=== PATIENT | male | born 1970 | race Caucasian/White ===

== ENCOUNTER 2022-02-24 15:58 | Emergency (ER) | payer MEDICAID ==
[2022-02-24] MEDS ORDERED: Sodium Chloride 0.9% 10 ML Syringe FLUSH PRN (16:42)
[2022-02-24] MEDS ORDERED: Insulin Regular, Human 100 Units/ML 3 ML Vial IVPUSH ONE (17:23)
[2022-02-24] MEDS ORDERED: Piperacillin/Tazobactam 4.5 GM in Sodium Chloride 0.9% 100 ML IV ONE (17:24)
[2022-02-24] MEDS ORDERED: Sodium Chloride 0.9% 1,000 ML IV SCH (17:30)
[2022-02-24 17:33] LABS: ESTIMATED GFR 103 mL/min (>60)
[2022-02-24] MEDS ORDERED: Sodium Chloride 0.9% 100 ML ONE (18:30)
== END 2022-02-24 20:00 ==
LOC: JD.ED 15:58
DX: L03.116 Cellulitis of left lower limb (principal); I96 Gangrene, not elsewhere classified; E11.65 Type 2 diabetes mellitus with hyperglycemia; J44.9 Chronic obstructive pulmonary disease, unspecified; F17.210 Nicotine dependence, cigarettes, uncomplicated; Z86.16 Personal history of COVID-19
CPT/HCPCS: 36415; 71045; 73700; 80053; 82947; 83605; 85007; 85027; 85652; 86140; 87070; 87075; 87205; 96361; 96365; 96367; 99285; J1815; J2543; J3370; J7030; J7050

== ENCOUNTER 2022-07-04 13:30 | Emergency (ER) | payer MEDICAID ==
[2022-07-04 15:18] LABS: CORONAVIRUS COVID-19 NAA NEGATIVE (NEGATIVE)
== END 2022-07-04 16:21 | disposition home or self-care (01) ==
LOC: JD.ED 13:30 → SUPCPDRO 13:30 → JD.ED 16:21
DX: J44.1 Chronic obstructive pulmonary disease with (acute) exacerbation (principal); E11.9 Type 2 diabetes mellitus without complications; Z79.82 Long term (current) use of aspirin; Z79.84 Long term (current) use of oral hypoglycemic drugs; Z87.891 Personal history of nicotine dependence; Z20.822 Contact with and (suspected) exposure to COVID-19
CPT/HCPCS: 0241U; 36415; 71046; 80053; 85025; 85379; 99285; 99283

== ENCOUNTER 2022-07-15 16:16 | Emergency (ER) | payer MEDICAID ==
[2022-07-15] MEDS ORDERED: Sodium Chloride 0.9% 10 ML Syringe FLUSH PRN (16:34)
== END 2022-07-15 19:59 | disposition home or self-care (01) ==
LOC: JD.ED 16:16
DX: R06.02 Shortness of breath (principal); I10 Essential (primary) hypertension; J44.9 Chronic obstructive pulmonary disease, unspecified; E11.9 Type 2 diabetes mellitus without complications; Z79.82 Long term (current) use of aspirin; Z79.4 Long term (current) use of insulin; Z79.899 Other long term (current) drug therapy; Z86.16 Personal history of COVID-19
CPT/HCPCS: 36415; 71045; 80053; 83735; 83880; 84484; 85025; 85379; 85610; 85730; 93005; 99285; J3490; 93010; 99283

== ENCOUNTER 2022-09-21 13:48 | Emergency (ER) | payer MEDICAID | END 2022-09-21 15:35 | disposition home or self-care (01) | LOC: JD.ED 13:48 | DX: L03.114 Cellulitis of left upper limb (principal); I10 Essential (primary) hypertension; J44.9 Chronic obstructive pulmonary disease, unspecified; E11.9 Type 2 diabetes mellitus without complications; Z86.16 Personal history of COVID-19; Z79.4 Long term (current) use of insulin; Z79.82 Long term (current) use of aspirin; Z79.899 Other long term (current) drug therapy | CPT/HCPCS: 73080-26-LT; 73080-LT; 99283 ==